=== PATIENT | female | born 1940 | race Caucasian/White ===

== ENCOUNTER 2019-03-16 14:45 | Inpatient (IN) | payer OTHER ==
[~2019-03-16] VITALS: Ht 154.9 cm; Wt 53.1 kg
[~2019-03-16 14:45] MED LIST: GABAPENTIN100 MG PO; GLIPIZIDE ER10 MG PO; METFORMIN HCL500 M2 PO; SYNTHROID88 MCG PO
== END 2019-03-28 12:43 | disposition home or self-care (01) | DRG 330 ==
LOC: SURG 03-24 12:00 → O/R 03-24 12:00 → SURH 03-24 14:45 → SURG 03-24 20:35 → SURH 03-24 21:00 → SURG 03-28 12:43
PROVIDERS: ADMIT Colon & Rectal Surgery
PROC: 0DTP4ZZ Resection of Rectum, Percutaneous Endoscopic Approach (ICD-10-PCS; 2019-03-24)
PROC: 07TC4ZZ Resection of Pelvis Lymphatic, Percutaneous Endoscopic Approach (ICD-10-PCS; 2019-03-24)
PROC: 0DJD8ZZ Inspection of Lower Intestinal Tract, Via Natural or Artificial Opening Endoscopic (ICD-10-PCS; 2019-03-24)
PROC: 0D1B4Z4 Bypass Ileum to Cutaneous, Percutaneous Endoscopic Approach (ICD-10-PCS; principal; 2019-03-24 21:00)
DX: C20 Malignant neoplasm of rectum (principal); C17.2 Malignant neoplasm of ileum; R59.0 Localized enlarged lymph nodes; E11.9 Type 2 diabetes mellitus without complications; E03.8 Other specified hypothyroidism; Z92.21 Personal history of antineoplastic chemotherapy; Z79.4 Long term (current) use of insulin